=== PATIENT | male | born 1965 | race Caucasian/White ===

== ENCOUNTER 2019-08-24 06:00 | Day surgery (SDC) | payer OTHER, SELFPAY ==
[2019-08-20 08:13] VITALS: BMI 24.4
[2019-08-23 12:58] LABS: Probe Check PASS; Specimen Processing Control PASS
--- NOTE | 2019-08-24 06:07 | PCM.HP.BLA ---
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 Beto Mcneill MD) Bilateral inguinal hernia without obstruction or gangrene (Acute) Family history of malignant neoplasm of colon in mother (Acute) Early onset Alzheimer's dementia (Acute) Sleep apnea (Acute) Surgical History (Updated 08/20/19 @ 08:11 by Domenica Linton) History of rhinoplasty (Acute ~01/2017) Family History (Updated 08/20/19 @ 08:11 by Domenica Linton) Mother Breast cancer Colon cancer Social History (Updated 08/20/19 @ 08:[address] Beto Mcneill MD) Smoking Status: Never smoker HPI HPI HPI: ANA FRANK, is a 54 M who presents to the office today for surgical consultation regarding 2-month history of right groin pain. He has a suspected right inguinal hernia. He is referred by his primary care physician Dr. Johanna Solis and a written compromise surgical consult recommendations will return to her. I assisted his mother with a colon resection for colon cancer. He presents with his daughter today. The patient has been having some mild memory loss. 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 That pain is persisted. He claims that it is pretty much constant. It is particularly bad when he is walking or lifting. He is aware that his mother had colon cancer. He himself has never had a colonoscopy. He denies bright red blood per rectum or melena. No change of bowel habits. No constipation or diarrhea. He has very infrequent nocturia. He has not previously had abdominal surgery HPI HPI HPI: ANA FRANK, is a 54 M who presents to the office today for ROS General General: No weight change, appetite, fatigue, colon cancer, breast cancer or weakness HEENT HEENT: No difficulty swallowing, eye injury, eye surgery, swollen glands or hoarseness Endo Endocrine: No thyroid disease, diabetes mellitus, thyroid cancer, Hair loss, heat intolerance or cold intolerance Musc Musculoskeletal: No back problems, arthritis, rheumatoid arthritis, gout or joint pain Cardio Cardiovascular: No murmur, pacemaker, heart disease, atrial fibrillation, high blood pressure, heart attack, heart stent, palpitations, shortness of breat with exertion or chest pain Psych Psychiatric: No depression, anxiety or hearing voices Resp Respiratory: No shortness of breath, Yes sleep apnea, No cough, No COPD, No asthma, No emphysema, No wheezing Gastro Gastrointestinal: No abdominal pain, No nausea or vomiting, No diarrhea, No constipation, No blood in stool, No acid reflux, No hemorrhoids, No ulcers, No gallbladder problem, No black,tarry stools Valerio Hematologic: No blood thinners, No blood disorders, No bleeding, No anemia, No blood clots Neuro Neurologic: No weakness Exam Const General: cooperative, healthy appearing, comfortable, no acute distress Nutritional Appearance: average body habitus Orientation: alert, awake, oriented x3 HENMT Head: normal to inspection Eyes General: appearance normal, both eyes and all related structures Neck Neck: normal visual inspection Carotids: normal carotid upstroke, no bruits Chest Chest palpation & inspection: normal inspection of the chest Resp Effort & Inspection: normal respiratory effort Auscultation: clear to auscultation bilaterally Cardio Rate: regular rate Rhythm: regular rhythm Heart Sounds: no murmurs GI Palpation: soft, no hepatosplenomegaly Auscultation: normal bowel sounds Other: Significant right inguinal hernia tender to palpation though reducible when supine. Lesser defect on the left noticeable when the patient is upright and standing and tender to palpation but reducible. Bilateral testicles are descended and without mass Musc Cervical Spine: normal cervical lordosis Neuro Other: The patient is assisted by his daughter with answering questions. He clearly has some evidence of memory deficit Extrem General: no calf tenderness Psych Affect: normal affect Assessment & Plan Problems 1. Family history of malignant neoplasm of colon in mother Z80.0 2. Non-recurrent bilateral inguinal hernia without obstruction or gangrene K40.20 Plan 54-year-old gentleman who has a family history of colon cancer in his mother and he has not ever had a previous colonoscopy. I definitively recommend a colonoscopy with possible biopsy or polypectomy as indicated. I described technique, benefit, risk and alternatives. The patient has a quite symptomatic right inguinal hernia and a tender smaller left inguinal hernia on clinical examination. I am recommending a laparoscopic bilateral inguinal hernia repair with mesh. He is additionally aware of technique, benefit, risk, alternatives. He is aware that this would require a general anesthetic. We had a discussion regarding his early onset dementia. We have discussed sedation and local with hernia repair versus potential for 2 different procedures to perform a right and then subsequently left inguinal hernia repair. We discussed general anesthesia. I believe that rather than performing stage repairs with sedation and local that it would be pertinent to proceed with general anesthesia and a laparoscopic repair. The patient is aware of the potential for advancement of his dementia related to this. Finally we discussed Covid-19. The [facility] is reporting a current low incidence. He is aware and would like to proceed. I very much appreciate the kind opportunity of assisting with his surgical care we will schedule and expedite his management. Because of the bilateral repair I will initiate him on Flomax 0.4 mg nightly preoperatively and plan approximately a 3-week course. He is aware that this will tentatively assist with postoperative urinary retention. Cc: Dr. Johanna Mcneill M.D., F.A.C.S. Medications New: tamsulosin (Flomax) 0.4 mg PO DAILY 21 caps 0RF Coding Level of Care Code 29047 Diagnoses Family history of malignant neoplasm of colon in mother Z80.0 Non-recurrent bilateral inguinal hernia without obstruction or gangrene K40.20 ??Recurrence: non-recurrent 08/20/19 0839 <Electronically signed by Beto Mcneill MD> Date Beto Mcneill MD I have re-examined the patient. There are no clinical changes since date of exam. Procedure Criteria Procedure Type: Elective COVID Risk Discussion: The surgeon/proceduralist and patient have discussed in detail the risk of exposure to and/or potential harm posed by the COVID-19 virus with having a surgery/procedure at this time versus the risk of delaying the surgery/procedure. It is not possible to know either the risk of delaying the surgery or procedure or chance of getting an infection with perfect accuracy, but a joint decision was made between the patient and the surgeon/proceduralist to proceed at this time with the scheduled surgery/procedure as indicated on the consent form.
[2019-08-24 06:27] LABS: Hematocrit 48.4 % (40-54); Hemoglobin 15.6 g/dL (13.0-16.5); Mean Corp Hgb Conc 32.2 g/dL (32-36); Mean Corpuscular Hgb 29.9 pg (27.0-32.0); Mean Corpuscular Volume 92.7 fL (80-94); Mean Platelet Vol. 9.4 fl (6.2-12.0); Platelet Count 317 K/mm3 (150-450); RBC Distribution Width CV 12.1 % (11.6-14.6); RBC Distribution Width SD 41.8 fl (35.1-43.9); Red Blood Count 5.22 M/mm3 (4.6-6.2)
[2019-08-24 06:30] VITALS: BP 130/87; PULSE 67; RESP 15; TEMP 36.8; O2SAT 99; BMI 24.7
[2019-08-24] MEDS: Lactated Ringers 1,000 ML 100 ML IV (06:35)
[2019-08-24 06:47] LABS: Anion Gap 7 (5-15); BUN 12 mg/dL (7-18); BUN/Creat Ratio 10.2 RATIO (10-20); Calcium,Total 9.5 mg/dL (8.5-10.1); Chloride 104 mmol/L (98-107); Creatinine, Serum 1.18 mg/dL (0.70-1.30); EST Glomerular Filtration Rate 68 mL/min (>60); Est Glom Filt Rate - Afr Amer 82 mL/min (>60); Estimated Creatinine Clearance 73.03 ml/min; Glucose 119 mg/dL (74-106); Potassium 3.4 mmol/L (3.5-5.1); Sodium Level 138 mmol/L (136-145)
[2019-08-24 07:30] VITALS: BP 104/76; BP 130/87; PULSE 68; RESP 16; TEMP 36.3; O2SAT 95
[2019-08-24 07:35] VITALS: BP 103/71; BP 130/87; PULSE 68; RESP 16; O2SAT 99
[2019-08-24 07:40] VITALS: BP 130/87; BP 150/91; PULSE 74; RESP 16; O2SAT 95
--- NOTE | 2019-08-24 07:43 | OP.COLON_ITS ---
Patient Name: Dequan Durbin Procedure Date: 08/24/2019 7:06 AM Date of : 1965 Age: 54 Procedure: Colonoscopy Indications: Family history of colon cancer in a first-degree relative Providers: Beto Mcneill MD Referring MD: Johanna Solis Medicines: See the Anesthesia note for documentation of the administered medications Patient Profile: Last Colonoscopy: none. The patient's first colonoscopy is today. Complications: No immediate complications. Procedure: Pre-Anesthesia Assessment: - Prior to the procedure, a History and Physical was performed, and patient medications and allergies were reviewed. The patient's tolerance of previous anesthesia was also reviewed. The risks and benefits of the procedure and the sedation options and risks were discussed with the patient. All questions were answered, and informed consent was obtained. Prior Anticoagulants: The patient has taken no previous anticoagulant or antiplatelet agents. ASA Grade Assessment: II - A patient with mild systemic disease. After reviewing the risks and benefits, the patient was deemed in satisfactory condition to undergo the procedure. After I obtained informed consent, the scope was passed under direct vision. Throughout the procedure, the patient's blood pressure, pulse, and oxygen saturations were monitored continuously. The colonoscope was introduced through the anus and advanced to the cecum, identified by appendiceal orifice and ileocecal valve. The colonoscopy was performed without difficulty. The patient tolerated the procedure well. The quality of the bowel preparation was good. The ileocecal valve and the appendiceal orifice were photographed. Scope In: 7:14:23 AM Scope Withdrawal Time 0 hours 8 minutes 0 seconds Scope Out: 7:26:35 AM Total Procedure Duration Time 0 hours 12 minutes 12 seconds Findings: The digital rectal exam findings include non-thrombosed internal hemorrhoids and internal hemorrhoids that prolapse with straining, but require manual replacement into the anal canal (Grade III). Pertinent negatives include normal prostate (size, shape, and consistency). The digital rectal exam findings include non-thrombosed external hemorrhoids and internal hemorrhoids that prolapse with straining, but spontaneously regress to the resting position (Grade II). Multiple diverticula were found in the entire colon. The exam was otherwise without abnormality. Impression: - Non-thrombosed internal hemorrhoids and internal hemorrhoids that prolapse with straining, but require manual replacement into the anal canal (Grade III) found on digital rectal exam. - Non-thrombosed external hemorrhoids and internal hemorrhoids that prolapse with straining, but spontaneously regress to the resting position (Grade II) found on digital rectal exam. - Diverticulosis in the entire examined colon. - The examination was otherwise normal. - No specimens collected. Recommendation: - Discharge patient to home. - Resume previous diet. - Continue present medications. - Repeat colonoscopy in 5 years for surveillance. Procedure Code(s): --- Professional --- 82843, Colonoscopy, flexible; diagnostic, including collection of specimen(s) by brushing or washing, when performed (separate procedure) Diagnosis Code(s): --- Professional --- K64.2, Third degree hemorrhoids K64.4, Residual hemorrhoidal skin tags Z80.0, Family history of malignant neoplasm of digestive organs K57.30, Diverticulosis of large intestine without perforation or abscess without bleeding CPT copyright 2017 [employer]. All rights reserved. The codes documented in this report are preliminary and upon bull gang worker review may be revised to meet current compliance requirements. Beto Mcneill MD 08/24/2019 7:43:42 AM This report has been signed electronically. Number of Addenda: 0 Note Initiated On: 08/24/2019 7:06 AM
[2019-08-24 07:44] VITALS: BP 116/60; BP 130/87; PULSE 68; RESP 16; TEMP 36.4; O2SAT 99
--- NOTE | 2019-08-24 07:44 | OP.CCLET_ITS ---
08/24/2019 Johanna Solis [address] [place] [address] Re : Colonoscopy procedure for Dequan Abelover Dear Dr. Solis This procedure was performed on Saturday, August 24, 2019. My impressions and recommendations are as follows: Impressions : - Non-thrombosed internal hemorrhoids and internal hemorrhoids that prolapse with straining, but require manual replacement into the anal canal (Grade III) found on digital rectal exam. - Non-thrombosed external hemorrhoids and internal hemorrhoids that prolapse with straining, but spontaneously regress to the resting position (Grade II) found on digital rectal exam. - Diverticulosis in the entire examined colon. - The examination was otherwise normal. - No specimens collected. Recommendations : - Discharge patient to home. - Resume previous diet. - Continue present medications. - Repeat colonoscopy in 5 years for surveillance. My findings are described in the full procedure note, which is enclosed. If I can be of further assistance, please feel free to contact me at Doctor phone number(s): Work: . Sincerely, Beto Mcneill MD 08/24/2019 7:43:42 AM This report has been signed electronically.
[2019-08-24 08:19] VITALS: BP 130/87
== END 2019-08-24 08:20 | disposition home or self-care (01) ==
LOC: EN 06:00 → AC 06:02
PROVIDERS: Anesthesiology; PCP Internal Medicine; Referring Provider Internal Medicine; Visit Provider Surgery
PROC: 0DJD8ZZ Inspection of Lower Intestinal Tract, Via Natural or Artificial Opening Endoscopic (ICD-10-PCS; CPT 45378; principal; 2019-08-24 06:55)
DX: Z12.11 Encounter for screening for malignant neoplasm of colon (principal); K57.30 Diverticulosis of large intestine without perforation or abscess without bleeding; K40.20 Bilateral inguinal hernia, without obstruction or gangrene, not specified as recurrent; K64.2 Third degree hemorrhoids; K64.4 Residual hemorrhoidal skin tags; Z11.59 Encounter for screening for other viral diseases; G30.0 Alzheimer's disease with early onset; F02.80 Dementia in other diseases classified elsewhere, unspecified severity, without behavioral disturbance, psychotic disturbance, mood disturbance, and anxiety; R35.1 Nocturia; G47.30 Sleep apnea, unspecified; Z79.899 Other long term (current) drug therapy; Z80.0 Family history of malignant neoplasm of digestive organs
CPT/HCPCS: 45378; 36415; 80048; 85027; 87635; G2023; J7120; J2405; U0003

== ENCOUNTER 2019-08-27 09:15 | Day surgery (SDC) | payer OTHER, SELFPAY ==
[2019-08-20 08:13] VITALS: BMI 24.4
--- NOTE | 2019-08-24 06:14 | EKG12_ITS ---
Test Reason : PREOP Blood Pressure : / mmHG Vent. Rate : 066 BPM Atrial Rate : 066 BPM P-R Int : 162 ms QRS Dur : 100 ms QT Int : 390 ms P-R-T Axes : 061 032 048 degrees QTc Int : 408 ms Normal sinus rhythm Normal ECG When compared with ECG of 31-JAN-2016 10:15, No significant change was found Confirmed by JD CANALES, DAVID ([id number]), newspaper editor MAKENNA HOWARD ([id number]) on 08/31/2019 9:57:58 AM Referred By: Beto Mcneill Confirmed By:BISMARK MILES MD
[2019-08-27] VITALS (12 sets, daily range): BP systolic 121–147; BP diastolic 49–91; PULSE 61–96; RESP 16–18; TEMP 36.1–36.7; O2SAT 93–100; BMI 25.0
[2019-08-27] MEDS: Lactated Ringers 1,000 ML 100 ML IV ×2 (09:43→11:45)
--- NOTE | 2019-08-27 10:55 | HP.PCM_ITS ---
Problem List (1) Bilateral inguinal hernia without obstruction or gangrene Status: Acute Qualifiers: History and Physical Date of Admission: 08/27/19 Intake Visit Reasons: RIGHT INGUINAL HERNIA Chief Complaint: right groin pain Facilities Supervisor Required: No Is patient in pain?: Yes (right groin ) Pain scale (1-10): 4 Allergies No Known Allergies Allergy (Verified 08/20/19 08:14) Medications donepezil 5 mg tablet mg PO 08/20/19 [History Confirmed 08/20/19] memantine 10 mg tablet ea PO 08/20/19 [History Confirmed 08/20/19] tamsulosin 0.4 mg capsule 0.4 mg PO DAILY #21 cap 08/20/19 [Rx Confirmed 08/20/19] REPLACED BY [facility] Medical History (Updated 08/20/19 @ 08:[address] Beto Mcneill MD) Bilateral inguinal hernia without obstruction or gangrene (Acute) Family history of malignant neoplasm of colon in mother (Acute) Early onset Alzheimer's dementia (Acute) Sleep apnea (Acute) Surgical History (Updated 08/20/19 @ 08:11 by Domenica Linton) History of rhinoplasty (Acute ~01/2017) Family History (Updated 08/20/19 @ 08:11 by Domenica Linton) Mother Breast cancer Colon cancer Social History (Updated 08/20/19 @ 08:[address] Beto Mcneill MD) Smoking Status: Never smoker HPI HPI HPI: ANA FRANK, is a 54 M who presents to the office today for surgical consultation regarding 2-month history of right groin pain. He has a suspected right inguinal hernia. He is referred by his primary care physician Dr. Johanna Solis and a written compromise surgical consult recommendations will return to her. I assisted his mother with a colon resection for colon cancer. He presents with his daughter today. The patient has been having some mild memory loss. 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 That pain is persisted. He claims that it is pretty much constant. It is particularly bad when he is walking or lifting. He is aware that his mother had colon cancer. He himself has never had a colonoscopy. He denies bright red blood per rectum or melena. No change of bowel habits. No constipation or diarrhea. He has very infrequent nocturia. He has not previously had abdominal surgery HPI HPI HPI: ANA FRANK, is a 54 M who presents to the office today for ROS General General: No weight change, appetite, fatigue, colon cancer, breast cancer or weakness HEENT HEENT: No difficulty swallowing, eye injury, eye surgery, swollen glands or hoarseness Endo Endocrine: No thyroid disease, diabetes mellitus, thyroid cancer, Hair loss, heat intolerance or cold intolerance Musc Musculoskeletal: No back problems, arthritis, rheumatoid arthritis, gout or joint pain Cardio Cardiovascular: No murmur, pacemaker, heart disease, atrial fibrillation, high blood pressure, heart attack, heart stent, palpitations, shortness of breat with exertion or chest pain Psych Psychiatric: No depression, anxiety or hearing voices Resp Respiratory: No shortness of breath, Yes sleep apnea, No cough, No COPD, No asthma, No emphysema, No wheezing Gastro Gastrointestinal: No abdominal pain, No nausea or vomiting, No diarrhea, No constipation, No blood in stool, No acid reflux, No hemorrhoids, No ulcers, No gallbladder problem, No black,tarry stools Valerio Hematologic: No blood thinners, No blood disorders, No bleeding, No anemia, No blood clots Neuro Neurologic: No weakness Exam Const General: cooperative, healthy appearing, comfortable, no acute distress Nutritional Appearance: average body habitus Orientation: alert, awake, oriented x3 HENMT Head: normal to inspection Eyes General: appearance normal, both eyes and all related structures Neck Neck: normal visual inspection Carotids: normal carotid upstroke, no bruits Chest Chest palpation & inspection: normal inspection of the chest Resp Effort & Inspection: normal respiratory effort Auscultation: clear to auscultation bilaterally Cardio Rate: regular rate Rhythm: regular rhythm Heart Sounds: no murmurs GI Palpation: soft, no hepatosplenomegaly Auscultation: normal bowel sounds Other: Significant right inguinal hernia tender to palpation though reducible when supine. Lesser defect on the left noticeable when the patient is upright and standing and tender to palpation but reducible. Bilateral testicles are descended and without mass Musc Cervical Spine: normal cervical lordosis Neuro Other: The patient is assisted by his daughter with answering questions. He clearly has some evidence of memory deficit Extrem General: no calf tenderness Psych Affect: normal affect Assessment & Plan Problems 1. Family history of malignant neoplasm of colon in mother Z80.0 2. Non-recurrent bilateral inguinal hernia without obstruction or gangrene K40.20 Plan 54-year-old gentleman who has a family history of colon cancer in his mother and he has not ever had a previous colonoscopy. I definitively recommend a colonoscopy with possible biopsy or polypectomy as indicated. I described technique, benefit, risk and alternatives. The patient has a quite symptomatic right inguinal hernia and a tender smaller left inguinal hernia on clinical examination. I am recommending a laparoscopic bilateral inguinal hernia repair with mesh. He is additionally aware of technique, benefit, risk, alternatives. He is aware that this would require a general anesthetic. We had a discussion regarding his early onset dementia. We have discussed sedation and local with hernia repair versus potential for 2 different procedures to perform a right and then subsequently left inguinal hernia repair. We discussed general anesthesia. I believe that rather than performing stage repairs with sedation and local that it would be pertinent to proceed with general anesthesia and a laparoscopic repair. The patient is aware of the potential for advancement of his dementia related to this. Finally we discussed Covid-19. The [facility] is reporting a current low incidence. He is aware and would like to proceed. I very much appreciate the kind opportunity of assisting with his surgical care we will schedule and expedite his management. Because of the bilateral repair I will initiate him on Flomax 0.4 mg nightly preoperatively and plan approximately a 3-week course. He is aware that this will tentatively assist with postoperative urinary retention. Cc: Dr. Johanna Mcneill M.D., F.A.C.S. Medications New: tamsulosin (Flomax) 0.4 mg PO DAILY 21 caps 0RF Coding Level of Care Code 04099 Diagnoses Family history of malignant neoplasm of colon in mother Z80.0 Non-recurrent bilateral inguinal hernia without obstruction or gangrene K40.20 ??Recurrence: non-recurrent 08/20/19 0839 <Electronically signed by Beto hutchins MD> Date _ Beto Mcneill MD I have re-examined the patient. There are no clinical changes since date of exam. Procedure Criteria Procedure Type: Elective COVID Risk Discussion: The surgeon/proceduralist and patient have discussed in detail the risk of exposure to and/or potential harm posed by the COVID-19 virus with having a surgery/procedure at this time versus the risk of delaying the surgery/procedure. It is not possible to know either the risk of delaying the surgery or procedure or chance of getting an infection with perfect accuracy, but a joint decision was made between the patient and the surgeon/proceduralist to proceed at this time with the scheduled surgery/procedure as indicated on the consent form.
--- NOTE | 2019-08-27 10:56 | DCINST_ITS ---
Discharge Diet: Light diet - advance as tolerated - if you have questions about your diet instructions, please talk to you doctor. Discharge Activity: May Not Drive - for 5-7 days or while taking narcotic pain medicine. May shower in (days): 1 Lifting Restrictions: 10 pounds Call your doctor if your incision/area has: Continuous Slow Oozing, Sudden Increased Bleeding, Increased Pain/ Swelling, Increased Redness, Foul Smelling Discharge Call your doctor if you observe: Fever of 101 or Higher Suture Line Care: Avoid Pulling/Pushing, Avoid Pinching/Bending Additional Dressing/Incision Instructions:: Change or remove dressing in 4 days. Leave steri-strips in place for 1 week. Allergies/Adverse Reactions: Allergies No Known Allergies Allergy (Verified 08/27/19 09:16) Medications to take at Discharge donepezil 5 mg tablet 10 mg PO DAILY 08/20/19 memantine 10 mg tablet 10 po.syringe PO BID 08/20/19 Tamsulosin HCl 0.4 mg PO DAILY 08/21/19 Primary Care Physician: Johanna Solis MD [Primary Care Provider] - Test Results: Test results from this visit will be discussed in further detail at your follow- up appointment, if applicable. Please Follow Up With: Beto Mcneill MD - [phone] When: Call to make an appointment to be seen in about 10 days.
[2019-08-27] MEDS: Bupivacaine Mpf 0.5% 30 ML VIAL (11:13)
--- NOTE | 2019-08-27 12:19 | PCM.OPRPT ---
Problem List (1) Bilateral inguinal hernia without obstruction or gangrene Status: Acute Qualifiers: Report of Operation Date of Procedure: 08/27/19 Pre-Operative Diagnosis: Bilateral non-recurrent inguinal hernias Post-Operative Diagnosis: Indirect right inguinal hernia, left femoral hernia Surgery/Procedure Performed:: Laparoscopic bilateral inguinal herniorrhaphy. Right Bard 3D large max mesh. Lot [id number], reference #[id number]. Expiry date 04/07/2024. Left Bard 3D max large left mesh. Lot number [id number], reference #[id number], expiry date 01/06/2024. Secure strap lot number [id number], expiry date February 2021 Description of Surgical Findings:: Timeout and informed consent was obtained. 54-year-old gentleman was taken to the operating room placed upon the table. He underwent general endotracheal intubation esthesia. Ancef 2 g given intravenously. The abdomen sterilely prepped and draped. 0.5% Marcaine was used as a local anesthetic. A total of 30 cc was used. Skin sites were pre-anesthetized. A vertical infraumbilical incision was created holding sutures of 0 Vicryl placed varies needle inserted saline drop test performed the abdomen was insufflated with CO2 to a pressure of 10 mmHg pressure. 10 mm trocar inserted. 10 mm laparoscope inserted. Under visualization there was evidence of an indirect right inguinal hernia. There was some minimal adhesions of sigmoid colon to the left lower quadrant. 5 mm ports were placed on the right left lower quadrants. Ilioinguinal nerve blocks were performed bilaterally under laparoscopic visualization. The peritoneum superior knee lateral to the internal ring on the right was incised carried medially the peritoneum was completely dissected free complete dissection was performed until the direct area femoral area and indirect area fully identified. An indirect hernia on the right was identified. Similarly the peritoneum superior lateral to the internal ring on the left was incised the peritoneum was dissected free and upon so doing it became evident that the hernia on the left was a femoral hernia. The direct indirect and femoral areas clearly identified on the left. A Bard 3D max large left mesh was placed on the left and a similar Bard 3D max large right mesh was placed on the right. There was a replaced so as to completely obliterate access with the direct indirect and femoral areas. They were placed with a date just minimally overlapped at the midline. They were secured in in place with 0 strap laterally superiorly and medially. Excellent coverage was achieved. The peritoneum was then approximated to itself with secure strap and hemo-lock clips to completely obliterate access to the mesh. Minimal blood loss. Hemostasis was intact. The abdomen was allowed to deflate of the CO2 through the antiviral valve. Trochars were removed. The fascia at the umbilicus approximated up to 0 Vicryl [id number] suture. Skin edges approximated opted for Monocryl subdermal stitches. Steri-Strips Telfa and OpSite dressings applied. Sponge and instrument and needle counts reported to the surgeon to be correct Specimens none. Drains none. Blood loss minimal. Beto Mcneill M.D., F.A.C.S. Type of Anesthesia:: General Anesthesiologist: Ramon Cervantes
[2019-08-27] MEDS: Ketorolac 15 MG/ML Vial IV (13:48)
[2019-08-27] MEDS: HYDROcodone Bitartrate/Apap 5/325 Tablet PO (14:40)
[2019-08-27] MEDS: Lactated Ringers 1,000 ML 250 ML IV (16:01)
[2019-08-27] MEDS: Metoclopramide 10 MG/2 ML Vial IV (16:10)
== END 2019-08-27 17:38 | disposition home or self-care (01) ==
LOC: SDC 09:15 → AC 09:16
PROVIDERS: Anesthesiology; PCP Internal Medicine; Referring Provider Surgery; Visit Provider Surgery
PROC: (CPT 49650; principal; 2019-08-27 10:50)
DX: K40.20 Bilateral inguinal hernia, without obstruction or gangrene, not specified as recurrent (principal); K41.90 Unilateral femoral hernia, without obstruction or gangrene, not specified as recurrent; Z80.0 Family history of malignant neoplasm of digestive organs; Z11.59 Encounter for screening for other viral diseases; G30.0 Alzheimer's disease with early onset; F02.80 Dementia in other diseases classified elsewhere, unspecified severity, without behavioral disturbance, psychotic disturbance, mood disturbance, and anxiety; G47.30 Sleep apnea, unspecified; Z79.899 Other long term (current) drug therapy
CPT/HCPCS: 49650; 87635; 93005; G2023; J7120; C1781; J2405; U0003